=== PATIENT | male | born 1950 | race Caucasian/White ===

== ENCOUNTER 2023-10-16 17:45 | Emergency (ER) | payer OTHER, SELFPAY ==
[2023-10-16 17:49] VITALS: BP 115/66
--- NOTE | 2023-10-16 18:14 | ED.GENMED ---
History of Present Illness
General
Chief Complaint: Skin Surface Trauma
Time Seen by Provider: 10/16/23 18:14
Travel History
Have you had any contact with someone who has COVID-19?: No
Do you have any symptoms of coronavirus? Fever > 100 degrees, chills, cough, shortness of breath, sore throat, loss of taste or smell, muscle aches, or headache?: No
History of Present Illness
History of Present Illness:
HPI: Patient was using a gas powered wood splitter and 'got lazy' and his right second digit was struck by the pumping mechanism. This led to laceration to the right second digit. He denies any dysfunction of range of motion at the right second
digit. There is a small laceration noted to the third digit as well.
EXAM:
GENERAL: Well appearing in no distress
HEENT: Moist oral mucosa
NEUROLOGIC: Excellent strength all extremities, no coordination deficits
PSYCHIATRIC: Appropriate mental status, normal insight and judgement
EXTREMITIES: There is 4 cm laceration noted to the anterior and posterior aspect of the right second digit however his ranges of motion at the DIP and PIP are normal, there is some mild bony tenderness
SKIN: No rash, no lesions as above
TIME OF INITIAL ENCOUNTER: 6:20 PM
NUMBER AND COMPLEXITY OF PROBLEMS ADDRESSED AT THE ENCOUNTER
� Chronic conditions affecting care: Hyperlipidemia, diabetes, skin cancer, diverticular disease
� Acute Exacerbation and/or Progression of Chronic Illness: This is an acute problem
� Differential Diagnosis includes:
AMOUNT AND/OR COMPLEXITY OF DATA TO BE REVIEWED AND ANALYZED
� I performed an independent evaluation of and my interpretation is:
EKG:
CT:
X-rays: X-ray shows right second distal mid phalanx fracture
Laboratory Studies:
Other:
� Review of other/old records: Reviewed lab work from 2016 that showed a glucose of 223 at that time
� Clinical information was obtained by an independent historian: I did speak to family at bedside
� Prescriptions/Medications Considered but not given:
� Further testing considered but not performed:
RISK OF COMPLICATIONS AND/OR MORBIDITY OR MORTALITY OF PATIENT MANAGEMENT
� Social determinants of health affecting care:
� Discussion with other providers: Notified/sent images to Dr. Pressley with outpatient management
� Escalation of care including admission/observation vs risk of discharge considered: The wounds were copiously irrigated, I debrided some of the nonviable tissue, and wound was closed. I also drained subungual hematoma.
Placing on antibiotics as he has a history of diabetes.
Past History
Past History
ED Past Medical History: None
ED Past Surgical History: None
Social History
Tobacco: Non-smoker
Alcohol: None
Personal: Single
Living: alone
Phy Exam
Physical Exam
Physical Exam:
See HPI
Course
Orders/Labs/Results
Orders:
Orders
10/16/23 18:15
Tetanus/Diphth/Acelpertussis [Adacel] 0.5 ml IM .ONCE ONE
10/16/23 18:25
CR Hand - Right Min 3 Views Urgent
Reason For Exam: trauma
10/16/23 18:30
Cephalexin Monohydrate [Keflex] 500 mg PO NOW STA
Vital Signs
Initial and Last Documented VS:
Initial Vital Signs
Temp Pulse Resp BP Pulse Ox
97.8 F 68 18 115/66 99
10/16/23 17:49 10/16/23 17:49 10/16/23 17:49 10/16/23 17:49 10/16/23 17:49
Last Documented Vital Signs
Temp Pulse Resp BP Pulse Ox
97.8 F 68 18 115/66 99
10/16/23 17:49 10/16/23 17:49 10/16/23 17:49 10/16/23 17:49 10/16/23 17:49
Procedures
Laceration Closure
Right Second Finger:
Status of Wound: clean and dirty
Description of Wound Edges: ragged
Preparation: cleaned with saline
Anesthesia: 1% Lidocaine
Revision/Debridement: minor revision
Wound exploration: explored to base- no FB
Type of Closure: single layer closure and interrupted sutures
Skin Closure Material: 4-0 nylon
Number of sutures: 18
Additional information:
Of note, I also drained subungual hematoma with electrocautery to the affected digit
*Critical Care Note
Total Time (30-74mins, 75-104mins- exclusive of procedures): Not Applicable
ED Attending Note
-
Portions of this chart may have been created with voice recognition software.� Occasional wrong word or��sound alike� substitutions may have occurred due to the inherent limitations of voice recognition software.
Discharge Plan
Departure
Patient Disposition: Home (Routine Discharge)
Date of Disposition: 10/16/23
Time of Disposition: 20:12
Patient with high blood pressure during this ER visit?: Yes
Discharge Problem:
Finger laceration
Instructions: Laceration Repair With Stitches (DC)
Prescriptions:
New
cephalexin 500 mg capsule
500 mg PO BID Qty: 8 0RF
No Action
metformin 500 MG tablet
500 mg PO BID
atorvastatin 10 MG tablet
10 mg PO QPM
aspirin 81 MG tablet,delayed release (DR/EC)
81 mg PO QPM
dfozyaejfqww-xwii-odthx acid [Daily Multivitamin with Iron] 1 EACH tablet
1 ea PO QPM
oxycodone-acetaminophen 5 MG/325 MG tablet
1 tab PO Q4HPRN PRN (Reason: severe pain) Qty: 10 0RF
Referrals:
Lito Yi MD [Active] - Follow up in 2-3 days
Cathy Goins DO [Family Provider] -
Activity Restrictions/Additional Instructions:
You have multiple irregular lacerations. I placed a total of 18 stitches in the wound. I also used electrical cautery to burn a hole into the nail to help drain some blood from underneath the nail. Given the complexity of the injury, I recommend
that you follow-up with Dr. Yi for reassessment. Try to change the dressing daily over the next several days. Return here if worse.
Interventions
Interventions:
*Nursing Disposition Last Done: 10/16/23 21:03
ED-Skin Assessment Last Done: 10/16/23 18:20
Discharge Date and Time
Discharge Date/Time: 10/16/23 21:04
Print Language: EQUATORIAL GUINEAN
[2023-10-16] MEDS: ADACEL 0.5 ML IM (19:16)
[2023-10-16] MEDS: KEFLEX 500 MG PO (19:17)
== END 2023-10-16 21:04 | disposition home or self-care (01) ==
LOC: EMR 17:45
PROVIDERS: EMERGENCY PHYSICIAN Emergency Medicine; FAMILY PHYSICIAN Family Medicine
DX: S61.210A Laceration without foreign body of right index finger without damage to nail, initial encounter (principal); X58.XXXA Exposure to other specified factors, initial encounter
CPT/HCPCS: 99283; 12001; 11740; 73130; 90715

== ENCOUNTER 2023-12-16 10:48 | Emergency (ER) | payer OTHER, SELFPAY ==
[2023-12-16 10:50] VITALS: BP 132/84
--- NOTE | 2023-12-16 11:12 | ED.GENMED ---
History of Present Illness
General
Chief Complaint: Musculo-Skeletal Complaint
Source: patient
Exam Limitations: none
Time Seen by Provider: 12/16/23 11:05
History of Present Illness
History of Present Illness:
See MDM
Past History
Past History
ED Past Medical History: None
ED Past Surgical History: None
Social History
Tobacco: Non-smoker
Alcohol: None
Personal: Single
Living: alone
Phy Exam
Physical Exam
Physical Exam:
See MDM
Course
Orders/Labs/Results
Orders:
Orders
12/16/23 11:11
Cyclobenzaprine HCl [Flexeril] 5 mg PO ONCE ONE
Ketorolac [Toradol] 30 mg IM NOW STA
12/16/23 11:12
Electrocardiogram (*1) Urgent
Reason for Study: Other
Other Reason for Exam: neck pain
EKG- Treatment ONCE
Vital Signs
Initial and Last Documented VS:
Initial Vital Signs
Temp Pulse Resp BP Pulse Ox
98.2 F 80 18 132/84 99
12/16/23 10:50 12/16/23 10:50 12/16/23 10:50 12/16/23 10:50 12/16/23 10:50
Last Documented Vital Signs
Temp Pulse Resp BP Pulse Ox
98.2 F 80 18 132/84 99
12/16/23 10:50 12/16/23 10:50 12/16/23 10:50 12/16/23 10:50 12/16/23 10:50
MDM/Problems Addressed
Differential Diagnosis Includes:
HPI and MDM Narrative:
73-year-old male presenting for evaluation of neck pain. Patient noted the pain this morning when he woke up. He is unsure if it was related to turning quickly while he was driving his car or straightening it from yard work. Patient does
acknowledge that he tends to overdo it. He believes he could have strained his. He denies headache or dizziness.
On exam, patient has obvious spasm to posterior paracervical musculature. He has no focal neurodeficits. He has no tenderness to palpation of carotids. Will treat this as musculoskeletal pain with Toradol, and Flexeril. Given the neck pain, will
obtain screening EKG
Physical exam
General: Well appearing and non-toxic
HEENT: protecting airway
Neck: Spasm to paracervical musculature. No midline tenderness. No tenderness to carotid palpation. Decreased range of motion secondary to spasm
CV: No evidence of cyanosis
Resp: No accessory muscle use
Abd: Non-distended
Extremities: No deformities
Neuro: alert
Psych: Normal affect
Skin: Intact
Problems Addressed including Acute and Chronic Conditions affecting care:
1. Neck spasm
Acuity: acute
Prognosis: stable
Details: Likely in setting of overuse. Will give dose of Toradol and Flexeril. No focal neurodeficits. No carotid tenderness
Updates
Screening EKG nonischemic. On reassessment after medication, patient feeling much better and feels comfortable going home
Differential Diagnosis (but not limited to): Neck spasm, neck strain
Testing considered: Cervical x-ray but no midline tenderness noted
Drug therapy (if applicable): OTC meds, please see d/c instruction regarding Rx drugs
Amount and/or Complexity of Data Reviewed
Clinical info obtained from: Patient
External data reviewed: N/A
Labs I independently reviewed (but not limited to): N/A
Radiology: N/A
Pulse Ox: not hypoxic
EKG independently reviewed: Sinus rhythm, normal axis, no STEMI
Acute Care Assistant: N/A
Critical Care: N/A
Risk of Complication:
Social Determinants of health: Good social support
Discussed with other providers: N/A
Escalation of Care includes Admit/Obs: After being observed in the Emergency Department, pt stable for discharge.
Occasional wrong word or 'sound a like' substitutions may have occurred due to the inherent limitations of voice recognition software. Read the chart carefully and recognize, using context, where substitutions have occurred.
*Critical Care Note
Total Time (30-74mins, 75-104mins- exclusive of procedures): Not Applicable
ED Attending Note
-
Portions of this chart may have been created with voice recognition software.� Occasional wrong word or��sound alike� substitutions may have occurred due to the inherent limitations of voice recognition software.
Discharge Plan
Departure
Patient Disposition: Home (Routine Discharge)
Date of Disposition: 12/16/23
Time of Disposition: 12:15
Patient with high blood pressure during this ER visit?: No
Discharge Problem:
Neck muscle spasm
Instructions: Torticollis, Adult
Prescriptions:
New
diclofenac potassium 50 mg tablet
50 mg PO BID Qty: 14 0RF
cyclobenzaprine 5 mg tablet
2.5 mg PO HS PRN (Reason: spasm) Qty: 6 0RF
No Action
metformin 500 MG tablet
500 mg PO BID
atorvastatin 10 MG tablet
10 mg PO QPM
aspirin 81 MG tablet,delayed release (DR/EC)
81 mg PO QPM
jvherwmvzltb-imka-lhmov acid [Daily Multivitamin with Iron] 1 EACH tablet
1 ea PO QPM
oxycodone-acetaminophen 5 MG/325 MG tablet
1 tab PO Q4HPRN PRN (Reason: severe pain) Qty: 10 0RF
cephalexin 500 mg capsule
500 mg PO BID Qty: 8 0RF
Referrals:
Cathy Goins DO [Family Provider] -
Activity Restrictions/Additional Instructions:
Please return for any worsening symptoms.
You may return at any time if you have further concerns.
Please follow up with your doctor at the first available appointment, preferably this week.
Thank you for choosing [facility].
Interventions
Interventions:
*Risk Screen - Suicide Last Done: 12/16/23 10:50
*General Assessment Last Done: 12/16/23 10:50
*Neglect/Abuse Screening Last Done: 12/16/23 10:50
ED-Musculoskeletal Assessment Last Done: 12/16/23 11:44
Discharge Date and Time
Print Language: HONDURAN
[2023-12-16] MEDS: FLEXERIL 5 MG PO (11:26)
[2023-12-16] MEDS: TORADOL 30 MG IM (11:26)
== END 2023-12-16 12:34 | disposition home or self-care (01) ==
LOC: EMR 10:48
PROVIDERS: EMERGENCY PHYSICIAN Student in an Organized Health Care Education/Training Program; FAMILY PHYSICIAN Family Medicine
DX: M62.838 Other muscle spasm (principal)
CPT/HCPCS: 99284; 96372; 93005

== ENCOUNTER 2024-12-23 17:20 | Emergency (ER) | payer OTHER, SELFPAY ==
[2024-12-23 17:25] VITALS: BP 105/67
--- NOTE | 2024-12-23 18:06 | ED.GENMED ---
History of Present Illness
General
Chief Complaint: Skin Surface Trauma
Source: patient
Exam Limitations: none
Time Seen by Provider: 12/23/24 17:59
Nursing documentation reviewed up to this point in time: agreed with
History of Present Illness
History of Present Illness:
Note:
CHIEF COMPLAINT(S)
Finger injury due to wood splitter accident.
HISTORY OF PRESENT ILLNESS
The patient is a 74-year-old male with a pmh of diabetes, skin cancer, hlp, who presented to the ER today following an injury to his finger sustained during working with a wood splitter. The injury occurred when the patients finger was caught
between the wood and the blade, leading to brief pressure on the finger. He reported that the pain was intense for two to three seconds but subsided quickly. He was wearing gloves at the time of the incident. The patient reports significant bleeding
following the initial injury, and there is no bone exposure. Upon examination, the finger laceration appears well-approximated, with no active bleeding. He reports no numbness, tingling, or loss of sensation in the affected finger. He denies any
associated injuries to the wrist or other fingers. He denies any other injuries.
PAST MEDICAL AND SURGICAL HISTORY
The patient has a history of a prior injury to the same finger, which was treated without complication.
ADDITIONAL HISTORY OBTAINED FROM SOURCES OTHER THAN THE PATIENT
According to the family member, the patient has had similar finger injuries in the past, noting a previous accident involving multiple fingers.
Last visit approximately one year ago, he received a tetanus vaccine
ALLERGIES
The patient reports no known allergies to antibiotics or other medications.
REVIEW OF SYSTEMS
- Skin: The patient experienced a laceration to the finger.
- Musculoskeletal: Reports no additional wrist or finger injuries. Strength and sensation in the affected finger are intact.
- Neurological: No numbness or tingling, maintains full sensation in the finger.
PHYSICAL EXAM
- General: Alert, no acute distress.
- Skin: Warm, dry. 2.5 jagged laceration noted on the left 1st anterior finger; abrasion and skin tear noted to left first posterior finger
- Cardiovascular: Normal peripheral perfusion, No edema.
- Musculoskeletal: No tenderness to palpation noted to the left first finger, 5/5 strength against resistance, FDP and FDS testing intact
- Peripheral vascular: brisk capillary refill noted
- Neurological: Sensation intact in injured finger, no focal neurological deficit observed.
PLAN
1. Wound Management: The laceration will be rinsed thoroughly. Posterior wound will be closed with stitches. Due to the nature of the injury and its environment, the plan includes potential closure with glue or steri-strips since the wound is
well-approximated.
2. Imaging: The patient is scheduled for an X-ray to rule out any fractures or foreign bodies in the injured finger.
3. Antibiotics: Due to the dirty nature of the machinery involved, initiate a course of antibiotics to prevent infection.
4. Education and Follow-up: Discuss signs of infection and ensure patient follows up as needed for wound review and progression of symptoms.
DIFFERENTIAL DIAGNOSIS
The Differential Diagnosis includes, in no particular order and is not limited to:
1. Finger Laceration
2. Contusion
3. Fracture
4. Tendon Injury
5. Ligament Injury
6. Subungual Hematoma
7. Infection
8. Joint Dislocation
9. Crush Injury
10. Nail Bed Injury
CHART REVIEW
Reviewed ER physician documentation from 12/16/2023 patient seen for neck muscle spasm he was treated with Toradol and Flexeril and was discharged with unremarkable workup
Reviewed ER physician documentation from 10/16/2023 patient seen for finger laceration had tetanus updated
MDM/DISPOSITION
The patient is a 74-year-old male with a pmh of diabetes, skin cancer, hlp, who presented to the ER today following an injury to his finger sustained during working with a wood splitter he was found to have a laceration on the left posterior pointer
finger as well as a minimally displaced intra-articular fracture through the base of the distal phalanx of the index finger. Patient was started on Keflex for prophylaxis. The wound does not communicate with the bone. Wound was repaired with
sutures. Patient tolerated the procedure well. Patient was placed in a splint with yong taping. Patient follows with Dr. Jovel, recommended calling his office to schedule appointment tomorrow. Patient stable for discharge. Patient is
up-to-date on his tetanus..
Past History
Past History
ED Past Medical History: None
ED Past Surgical History: None
Social History
Tobacco: Non-smoker
Alcohol: None
Personal: Single
Living: alone
Review of Systems
Review of Systems
All Other Systems: ROS reviewed and negative except as documented in HPI and ROS
Phy Exam
Physical Exam
Physical Exam:
see hpi
Course
Orders/Labs/Results
Orders:
Orders
12/23/24 17:27
Finger(s)/Thumb 2 View Lt [CR Finger(s)/thumb Min 2 Vw Lt] Urgent
Comment:
Reason For Exam: injured in log splitter
Indicate Which Finger:: Index Finger
12/23/24 19:02
Acetaminophen [Tylenol] 1,000 mg PO NOW STA
Cephalexin Monohydrate [Keflex] 500 mg PO NOW STA
Vital Signs
Initial and Last Documented VS:
Initial Vital Signs
Temp Pulse Resp BP Pulse Ox
98.7 F 75 18 105/67 97
12/23/24 17:25 12/23/24 17:25 12/23/24 17:25 12/23/24 17:25 12/23/24 17:25
Last Documented Vital Signs
Temp Pulse Resp BP Pulse Ox
98.7 F 75 18 105/67 97
12/23/24 17:25 12/23/24 17:25 12/23/24 17:25 12/23/24 17:25 12/23/24 18:07
Procedures
Laceration Closure
Left Anterior Finger:
Status of Wound: clean
Size of Wound in cm: 2.5
Description of Wound Edges: ragged
Preparation: cleaned with saline
Anesthesia: 1% Lidocaine
Revision/Debridement: routine- no revision
Wound exploration: explored to base- no FB
Type of Closure: single layer closure
Skin Closure Material: 5-0 prolene
Number of sutures: 5
*Pulse Oximetry
SaO2: 97
Oxygen Mode of Delivery: Room air
Patient hypoxic: no
*Critical Care Note
Total Time (30-74mins, 75-104mins- exclusive of procedures): Not Applicable
ED Attending Note
-
Portions of this chart may have been created with voice recognition software.� Occasional wrong word or��sound alike� substitutions may have occurred due to the inherent limitations of voice recognition software.
Discharge Plan
Departure
Patient Disposition: Home (Routine Discharge)
Date of Disposition: 12/23/24
Time of Disposition: 19:54
Patient with high blood pressure during this ER visit?: No
Condition: Good
Discharge Problem:
Phalanx, distal fracture of finger, Finger laceration
Instructions: Hand fracture, Wound Care (DC), Laceration Repair With Stitches (DC)
Prescriptions:
New
cephalexin 500 mg capsule
500 mg PO TID 7 Days Qty: 21 0RF
No Action
metformin 500 MG tablet
500 mg PO BID
atorvastatin 10 MG tablet
10 mg PO QPM
aspirin 81 MG tablet,delayed release (DR/EC)
81 mg PO QPM
uzsamivdbxdl-xrgy-tvvol acid [Daily Multivitamin with Iron] 1 EACH tablet
1 ea PO QPM
oxycodone-acetaminophen 5 MG/325 MG tablet
1 tab PO Q4HPRN PRN (Reason: severe pain) Qty: 10 0RF
cephalexin 500 mg capsule
500 mg PO BID Qty: 8 0RF
diclofenac potassium 50 mg tablet
50 mg PO BID Qty: 14 0RF
cyclobenzaprine 5 mg tablet
2.5 mg PO HS PRN (Reason: spasm) Qty: 6 0RF
Referrals:
Lito Yi MD [Active, Orthopedics] - Call in 1-3 days for appt
Cathy Goins, [Family Provider, Family Practice]
Activity Restrictions/Additional Instructions:
You can take Tylenol as needed for pain.
Keflex has been sent to your pharmacy. Starting tomorrow, please take 1 tablet 3 times daily for [address] Yi tomorrow to schedule follow-up appointment and states that you are seen in the ER for finger fracture. Stitches can
come out in 10 days. Please keep the wound dry for 24 hours. After 24 hours, you can unwrap and change the dressing once daily. You can apply nonadherent pad over the stitches followed by your splint Yong tape to the adjacent finger. The
Steri-Strips on the finger will peel off on their own as the wound heals. Please do not remove them. You apply bacitracin over the stitches once daily.
PLEASE RETURN EMERGENCY DEPARTMENT SHOULD YOU DEVELOP INABILITY TO RANGE YOUR FINGER, LOSS OF SENSATION, INCREASING PAIN OR SWELLING, PURULENT DRAINAGE FROM THE FINGER, FEVERS OR CHILLS, SURROUNDING REDNESS, INCREASING PAIN, OR ANY OTHER SIGNS OR
SYMPTOMS RECENTLY.
Interventions
Interventions:
*Risk Screen - Suicide Last Done: 12/23/24 17:27
*General Assessment Last Done: 12/23/24 17:27
*Neglect/Abuse Screening Last Done: 12/23/24 17:27
*ED COVID-19 Vaccine History Last Done: 12/23/24 17:27
*Nursing Disposition Last Done: 12/23/24 20:21
ED-Skin Assessment Last Done: 12/23/24 18:09
Discharge Date and Time
Discharge Date/Time: 12/23/24 20:22
Print Language: [place]THER[place] IRISH
[2024-12-23] MEDS: TYLENOL 1000 MG PO (19:32)
[2024-12-23] MEDS: KEFLEX 500 MG PO (19:33)
== END 2024-12-23 20:22 | disposition home or self-care (01) ==
LOC: EMR 17:20
PROVIDERS: EMERGENCY PHYSICIAN Student in an Organized Health Care Education/Training Program; FAMILY PHYSICIAN Family Medicine
DX: S62.631A Displaced fracture of distal phalanx of left index finger, initial encounter for closed fracture (principal); S61.211A Laceration without foreign body of left index finger without damage to nail, initial encounter; W26.8XXA Contact with other sharp object(s), not elsewhere classified, initial encounter; E11.9 Type 2 diabetes mellitus without complications; E78.5 Hyperlipidemia, unspecified; Z79.84 Long term (current) use of oral hypoglycemic drugs; Z79.82 Long term (current) use of aspirin; Z85.828 Personal history of other malignant neoplasm of skin
CPT/HCPCS: 99283; 12001; 73140